=== PATIENT | male | born 1945 | race Caucasian/White ===

== ENCOUNTER 2023-06-15 12:20 | Inpatient (IN) | payer MEDICARE, OTHER ==
[~2023-06-15] VITALS: Ht 165.1 cm; Wt 72.6 kg
[2023-06-15] MEDS ORDERED: BISA10SU61 RC (13:05)
[2023-06-15] MEDS ORDERED: TRAZ-257 PO (13:05)
[2023-06-15] MEDS ORDERED: ACET325C7 PO (13:05)
[2023-06-15] MEDS ORDERED: SENN8.6T19 PO (13:05)
[2023-06-15] MEDS ORDERED: SENN-261 PO (13:05)
[2023-06-15] MEDS ORDERED: DOCU100C36 PO (13:05)
[2023-06-15] MEDS ORDERED: MULT-1141 PO (13:05)
[2023-06-15] MEDS ORDERED: SERT50TA PO (13:05)
[2023-06-15] MEDS ORDERED: HALO5VIA9 IM (13:05)
[2023-06-15] MEDS ORDERED: LORA0.5T48 PO (13:05)
[2023-06-15] MEDS ORDERED: QUET100T PO (13:05)
[2023-06-15] MEDS ORDERED: ONDA4AMP IM (13:05)
[2023-06-15 13:10] LABS: DIFFERENTIAL COMMENT 0; EOSINOPHILS # (AUTO) 0.2 K/uL (0.0-0.7); EOSINOPHILS % (AUTO) 3.6 % (0.0-7.0); HEMATOCRIT 41.4 % (36.7-47.1); HEMOGLOBIN 14.1 g/dL (12.5-16.3); LYMPHOCYTES # (AUTO) 1.3 K/uL (0.8-4.8); LYMPHOCYTES % (AUTO) 20.1 % (20.5-51.5); MEAN CORPUSCULAR HEMOGLOBIN 30.9 uug (23.8-33.4); MEAN CORPUSCULAR HGB CONC 34 g/dL (32.5-36.3); MEAN CORPUSCULAR VOLUME 90.9 fL (73.0-96.2); MONOCYTES # (AUTO) 0.5 K/uL (0.1-1.30); MONOCYTES % (AUTO) 8.4 % (0.0-11.0); NEUTROPHILS # (AUTO) 4.3 K/uL (1.8-8.9); NEUTROPHILS % (AUTO) 67.9 % (38.5-71.5); PLATELET COUNT (AUTO) 240 K/uL (152-348); RED BLOOD CELL COUNT(AUTO) 4.56 MIL/uL (4.06-5.63); RED CELL DISTRIBUTION WIDTH 13.6 % (12.1-16.2); WHITE BLOOD COUNT (AUTO) 6.3 K/uL (3.6-10.2)
[2023-06-15 13:20] LABS: CALCIUM 9.2 mg/dL (8.5-10.1); CARBON DIOXIDE 29 mmol/L (21-32); CHLORIDE 108 mmol/L (98-107); CREATININE 1.1 mg/dL (0.6-1.3); GLUCOSE 91 mg/dL (74-106); POTASSIUM 3.8 mmol/L (3.5-5.1); SODIUM SERUM 146 mmol/L (136-145); UREA NITROGEN, BLOOD 28 mg/dL (7-18)
[2023-06-15 13:32] LABS: ALANINE AMINOTRANSFERASE 17 U/L (16-63); ALBUMIN 3.7 g/dL (3.4-5.0); ALKALINE PHOSPHATASE 57 U/L (50-136); ASPARTATE AMINOTRANSFERASE 10 U/L (15-37); BILIRUBIN,TOTAL 0.7 mg/dL (0.2-1.0); NT-PRO BNP 438 pg/mL (0-125); TOTAL PROTEIN, SERUM 6.1 g/dL (6.4-8.2)
[2023-06-15 13:44] LABS: CREATINE KINASE, TOTAL 55 U/L (39-308)
[2023-06-15] MEDS: IV NORMAL SALINE 1000 ML BAG IV ONE (13:58)
[2023-06-15] MEDS ORDERED: LORAZEPAM 2 MG/1 ML VIAL ONE (17:21)
[2023-06-15] MEDS: LORAZEPAM 2 MG/1 ML VIAL IV ONE (17:25)
[2023-06-15] MEDS ORDERED: Medication Not On Formulary EA (Acetaminophen (Tylenol) 650 MG) PO SCH (17:45)
[2023-06-15] MEDS ORDERED: BISACODYL 10 MG SUPP.RECT RC PRN (17:45)
[2023-06-15] MEDS ORDERED: HALOPERIDOL LACTATE 5 MG/1 ML VIAL IM PRN (17:45)
[2023-06-15] MEDS ORDERED: SENNOSIDES 1 TABLET PO PRN (17:45)
[2023-06-15] MEDS ORDERED: HYDROCODONE/APAP 5-325MG TABLET PO PRN (17:45)
[2023-06-15] MEDS ORDERED: ALBUTEROL SULFATE 2.5 MG/3 ML NEBU NEB PRN (17:45)
[2023-06-15] MEDS: TRAZODONE 100 MG TABLET PO SCH (20:48)
[2023-06-15] MEDS: QUETIAPINE FUMARATE 100 MG TABLET PO SCH (20:57)
[2023-06-15] MEDS: SENNOSIDES 1 TABLET PO SCH (20:57)
[2023-06-15 21:10] VITALS: BP 140/71; TEMP 98.2; O2SAT 99
[2023-06-16 00:11] VITALS: BP 113/64; TEMP 98; O2SAT 96
[2023-06-16 05:10] VITALS: BP 147/78; TEMP 98.3; O2SAT 96
[2023-06-16] MEDS: PANTOPRAZOLE SODIUM 40 MG TABLET.DR PO SCH (06:04)
[2023-06-16 07:41] LABS: BASOPHILS # (AUTO) 0.1 K/UL (0.0-0.2); BASOPHILS % (AUTO) 0.9 % (0.0-2.0); EOSINOPHILS # (AUTO) 0.3 K/uL (0.0-0.7); EOSINOPHILS % (AUTO) 5.2 % (0.0-7.0); HEMATOCRIT 39.4 % (36.7-47.1); HEMOGLOBIN 13.5 g/dL (12.5-16.3); LYMPHOCYTES # (AUTO) 1.9 K/uL (0.8-4.8); LYMPHOCYTES % (AUTO) 32.2 % (20.5-51.5); MEAN CORPUSCULAR HEMOGLOBIN 31.3 uug (23.8-33.4); MEAN CORPUSCULAR HGB CONC 34 g/dL (32.5-36.3); MONOCYTES # (AUTO) 0.6 K/uL (0.1-1.30); MONOCYTES % (AUTO) 9.7 % (0.0-11.0); NEUTROPHILS # (AUTO) 3.1 K/uL (1.8-8.9); PLATELET COUNT (AUTO) 237 K/uL (152-348); RED BLOOD CELL COUNT(AUTO) 4.32 MIL/uL (4.06-5.63); RED CELL DISTRIBUTION WIDTH 13.8 % (12.1-16.2); WHITE BLOOD COUNT (AUTO) 5.9 K/uL (3.6-10.2)
[2023-06-16 07:57] LABS: DIFFERENTIAL COMMENT 1
[2023-06-16 08:06] LABS: THYROID STIMULATING HORMONE 1.416 mIU/mL (0.358-3.740)
[2023-06-16 08:08] LABS: ALBUMIN 3.3 g/dL (3.4-5.0); BILIRUBIN,TOTAL 0.7 mg/dL (0.2-1.0); CREATININE 0.9 mg/dL (0.6-1.3); MAGNESIUM 1.9 mg/dL (1.8-2.4); PHOSPHOROUS 4.3 mg/dL (2.5-4.9); TOTAL PROTEIN, SERUM 5.7 g/dL (6.4-8.2)
[2023-06-16 08:12] LABS: POTASSIUM 3.8 mmol/L (3.5-5.1)
[2023-06-16 08:23] LABS: CALCIUM 8.5 mg/dL (8.5-10.1)
[2023-06-16 08:54] VITALS: BP 120/70; TEMP 98.3; O2SAT 98
[2023-06-16] MEDS: SENNOSIDES 1 TABLET PO SCH (09:49)
[2023-06-16] MEDS: MULTIVIT, IRON, MIN NO. 8, FA TABLET PO SCH (09:52)
[2023-06-16] MEDS: DOCUSATE SODIUM 100 MG CAPSULE PO SCH (09:53)
[2023-06-16] MEDS: LORAZEPAM 0.5 MG TABLET PO SCH (09:53)
[2023-06-16] MEDS: SERTRALINE HCL 50 MG TABLET PO SCH (09:53)
[2023-06-16 16:00] VITALS: BP 113/53; TEMP 98.3; O2SAT 99
[2023-06-16 20:00] VITALS: BP 104/48; TEMP 97.9; O2SAT 99
[2023-06-17 06:18] VITALS: BP 107/61; TEMP 97.8; O2SAT 100
[2023-06-17] MEDS: LORAZEPAM 1 MG TABLET PO SCH (09:31)
[2023-06-17 16:00] VITALS: BP 148/92; TEMP 97.6; O2SAT 98
[2023-06-17 21:03] VITALS: BP 117/66; TEMP 98.2; O2SAT 95
[2023-06-17] MEDS: ACETAMINOPHEN 325 MG TABLET PO PRN (21:13)
[2023-06-18 04:38] VITALS: BP 107/65; TEMP 98.1; O2SAT 99
[2023-06-18 11:50] VITALS: BP 108/57; TEMP 98.5; O2SAT 99
[2023-06-18 16:01] VITALS: BP 98/57; TEMP 98.3; O2SAT 98
[2023-06-18 20:00] VITALS: BP 131/59; TEMP 97.6; O2SAT 100
[2023-06-19 06:10] VITALS: BP 110/63; TEMP 97.4; O2SAT 98
[2023-06-19 07:06] LABS: BASOPHILS % (AUTO) 0.8 % (0.0-2.0); EOSINOPHILS # (AUTO) 0.3 K/uL (0.0-0.7); EOSINOPHILS % (AUTO) 4.2 % (0.0-7.0); HEMATOCRIT 39.9 % (36.7-47.1); HEMOGLOBIN 13.8 g/dL (12.5-16.3); LYMPHOCYTES # (AUTO) 1.8 K/uL (0.8-4.8); LYMPHOCYTES % (AUTO) 30.7 % (20.5-51.5); MEAN CORPUSCULAR HEMOGLOBIN 31.3 uug (23.8-33.4); MEAN CORPUSCULAR HGB CONC 35 g/dL (32.5-36.3); MEAN CORPUSCULAR VOLUME 90.9 fL (73.0-96.2); MONOCYTES # (AUTO) 0.4 K/uL (0.1-1.30); MONOCYTES % (AUTO) 7.3 % (0.0-11.0); NEUTROPHILS # (AUTO) 3.4 K/uL (1.8-8.9); PLATELET COUNT (AUTO) 249 K/uL (152-348); RED BLOOD CELL COUNT(AUTO) 4.39 MIL/uL (4.06-5.63); RED CELL DISTRIBUTION WIDTH 13.5 % (12.1-16.2); WHITE BLOOD COUNT (AUTO) 5.9 K/uL (3.6-10.2)
[2023-06-19 07:17] LABS: DIFFERENTIAL COMMENT 1
[2023-06-19 07:18] LABS: CALCIUM 8.5 mg/dL (8.5-10.1); CREATININE 1.1 mg/dL (0.6-1.3); POTASSIUM 3.9 mmol/L (3.5-5.1)
[2023-06-19 08:00] VITALS: BP 114/82; TEMP 98.3; O2SAT 98
[2023-06-19] MEDS: CYANOCOBALAMIN 1,000 MCG TABLET PO SCH (08:54)
[2023-06-19 11:34] VITALS: BP 130/66; TEMP 98; O2SAT 99
[2023-06-19 13:00] VITALS: O2SAT 99
[2023-06-19 15:55] VITALS: BP 90/49; TEMP 98.4; O2SAT 95
[2023-06-19 20:15] VITALS: BP 116/56; TEMP 98.2; O2SAT 99
[2023-06-20 04:20] VITALS: BP 115/81; TEMP 98.1; O2SAT 99
== END 2023-06-20 13:35 | DRG 682 ==
LOC: ER 12:20 → TELE3 18:00 → MEDSURG3 06-16 12:35
PROVIDERS: ADMIT Internal Medicine; ATTEND Internal Medicine
DX: N17.0 Acute kidney failure with tubular necrosis (principal); G93.41 Metabolic encephalopathy; F02.83 Dementia in other diseases classified elsewhere, unspecified severity, with mood disturbance; E86.1 Hypovolemia; E86.0 Dehydration; R62.7 Adult failure to thrive; Z68.21 Body mass index [BMI] 21.0-21.9, adult; G30.9 Alzheimer's disease, unspecified; F20.9 Schizophrenia, unspecified; Z87.19 Personal history of other diseases of the digestive system; Z78.1 Physical restraint status; Z79.899 Other long term (current) drug therapy; I70.0 Atherosclerosis of aorta; R06.02 Shortness of breath; R53.1 Weakness
CPT/HCPCS: 36415; 71045; 83550; 83735; 84100; 84443; 84484; 85025; 86140; 93005; A4663; C1758; G0378; J2060